=== PATIENT | female | born 1955 | race Caucasian/White ===

== ENCOUNTER 2017-02-18 08:46 | Day surgery (SDC) | payer OTHER, BC ==
[2017-02-18] MEDS ORDERED: MIDAZOLAM HCL 2MG/2ML VIAL IV ONE (14:00)
[2017-02-18] MEDS ORDERED: PROPOFOL 10 MG/ML VIAL IV ONE (14:00)
[2017-02-18] MEDS ORDERED: LIDOCAINE 2% MDV (20MG/ML) 20ML VIAL IV ONE (14:00)
[2017-02-18 14:04] LABS: BASO % 0.2 % (0-6); EOS % 1.1 % (0-6); GRAN % 79.3 % (47-80); LYMPH % 15.8 % (16-45); MEAN CELL VOLUME 94.9 fl (81-97); MEAN CORPUSCULAR HEMOGLOBIN 30.9 pg (27-33); MEAN CORPUSCULAR HGB CONC 32.6 g/dl (32-36); MEAN PLATELET VOLUME 8.9 fl (7.4-10.4); MONO % 3.6 % (0-9); PLATELET COUNT 350 K/uL (130-400); RED BLOOD COUNT 4.53 M/uL (3.80-5.40); RED CELL DISTRIBUTION WIDTH 13.4 % (11.5-14.5); WHITE BLOOD COUNT W/O DIFF 10.3 K/uL (4.2-12.2)
[2017-02-18 14:21] LABS: ALB/GLOB RATIO 1.3 (1.1-1.8); ALKALINE PHOSPHATASE 150 U/L (38-126); ALT/SGPT 27 U/L (9-52); ANION GAP 10.2 (7-16); AST/SGOT 20 U/L (14-36); BILIRUBIN,TOTAL 0.25 mg/dL (0.2-1.3); BLOOD UREA NITROGEN 11 mg/dL (7-17); CARBON DIOXIDE 26.8 mmol/L (22-30); CREATININE 0.8 mg/dL (0.52-1.04); EST GLOMERULAR FILTRATION RATE > 60 ml/min; GLUCOSE,RANDOM 146 mg/dL (70-110)
[2017-02-18 14:40] LABS: C-REACTIVE PROTEIN 2.7 mg/dL (0.0-0.9)
--- NOTE | 2017-02-19 12:30 | Operative Note ---
DATE OF SURGERY: 02/18/2017 REFERRING PHYSICIAN: Andreas Rodriguez DO PREOPERATIVE DIAGNOSIS: See below. POSTOPERATIVE DIAGNOSIS: See below. PROCEDURE: COLONOSCOPY to the cecum with multiple biopsies. INDICATION: Previous episode of presumed diverticulitis in October 2016 (3 months ago), treated with combination antibiotics with resolution of pain. Patient presents today for colonoscopy. She had a previous CAT scan demonstrating wall thickening involving the terminal ileum with mild prominence of the vascular arcade and some nonenlarged lymph nodes, possibly related to a nonspecific enteritis. She also had colonic diverticulosis noted with a segment of wall thickening in the mid to distal descending colon with fat stranding consistent with colitis or diverticulitis. Colonoscopy is performed at this time for further evaluation. Intravenous sedation was administered by the Department of Anesthesiology and included Diprivan titrated to effect. PROCEDURE: Following informed consent from this alert individual, including a discussion of the risks and benefits of the procedure and an opportunity for the patient to ask questions, the patient was placed in the left lateral decubitus position. A digital rectal examination was performed. No abnormalities were detected. Following this, an Olympus [id number] video colonoscope was inserted into the rectum without resistance. The rectal mucosa had a normal appearance, with normal folds and distensibility. The sigmoid colon was abnormal with scattered diverticula noted. Also noted were multiple areas of ulceration measuring between 3 and 10 mm in size throughout the sigmoid colon and descending colon. The transverse colon, likewise, had some small areas of erythema with edema. The ascending colon and cecum, again, had multiple areas of superficial ulcerations noted, again extending up to 10 mm in size. The area was quite friable when biopsied. The cecum was defined by noting the appendiceal orifice. The ileocecal valve was difficult to visualize. The patient did have a very redundant colon, and this required abdominal pressure support by the nursing staff to facilitate reaching the cecum itself. Multiple attempts at localizing the ileocecal valve were unsuccessful, perhaps related to edema and ulcerations noted in the cecum and ascending colon. From the base of the cecum, the colonoscope was then withdrawn back through the bowel, re-examining the mucosa upon withdrawal. Again, biopsies were taken from the cecum, ascending colon, descending colon, and rectosigmoid colon. Again, there was diverticulosis noted in the left colon with these ulcerative changes as described above in a focal fashion throughout the majority of the colon. Retroflexion of the rectum revealed internal and external hemorrhoids, which were small in size. The endoscope was straightened and withdrawn. The patient tolerated the procedure well and was returned to the recovery area in stable condition. IMPRESSION: 1. Focal areas of ulceration essentially throughout the colon with most involvement in the cecum and ascending colon; also, fairly prominent in the descending colon and rectosigmoid colon. Biopsies taken from throughout the bowel as described above. 2. Left colonic diverticulosis. 3. Internal/external small hemorrhoids. 4. Inability to cannulate the terminal ileum. RECOMMENDATIONS: There was some deformity also noted in the cecum, perhaps from extrinsic compression. For further evaluation, I would like to obtain a CT enterography to particularly evaluate the terminal ileum, which could not be seen today, and reevaluate the colon. Further recommendations will be forthcoming pending results of biopsies obtained today. The patient will be scheduled to have an outpatient appointment in followup. Followup also will be with Dr. Andreas Rodriguez. As always, thank you for allowing me to participate in the care of your patient. Bhargav Humphrey DO CC: DO NILE Chapa
== END 2017-02-18 11:44 | disposition home or self-care (01) ==
LOC: HOP 08:46
PROVIDERS: ATTEND Internal Medicine Gastroenterology
DX: Z12.11 Encounter for screening for malignant neoplasm of colon (principal); K63.3 Ulcer of intestine; K63.89 Other specified diseases of intestine; K64.4 Residual hemorrhoidal skin tags; K64.8 Other hemorrhoids; K57.30 Diverticulosis of large intestine without perforation or abscess without bleeding
CPT/HCPCS: 80053; 85025; 86140